=== PATIENT | male | born 1955 | race African-American/Black ===

== ENCOUNTER 2016-09-23 09:17 | Emergency (ER) | payer MEDICARE, MEDICAID ==
[~2016-09-23] VITALS: Ht 177.8 cm; Wt 55.0 kg
[~2016-09-23 09:17] MED LIST: 1-ME1LIQ PO; LIPI20TA PO; LISI-357 PO; LORTA5 PO; PROM25TA5 PO; SEVEL800 PO
[2016-09-23 09:19] VITALS: BP 112/79; PULSE 84; RESP 18; TEMP 97.5; O2SAT 99
--- NOTE | 2016-09-23 10:32 | PD ---
HPI Chief Complaint: Medication Refill Request Time Seen by Provider: 10:27 Travel History International Travel<30 days: No Contact w/Intl Traveler<30days: No Traveled to known affect area: No History of Present Illness HPI 60-year-old male presents to the emergency department requesting a new prescription for his Roxicodone. He has a prescription with him that the pharmacy will not fill it for him. He says he's been to every pharmacy and they tell him that they do not carry this medication. The patient is on dialysis and complains of chronic pain. His primary care gave him tramadol but that does not help with his pain. He has no emergent medical complaints at this time. He denies fever, chills, nausea, vomiting. Denies chest pain, shortness of breath, abdominal pain, change in urine or stool. Allergies to shellfish. No other modifying factors or associated signs and symptoms. History Past Medical Histgory Hx Cancer: No Hx Chemotherapy: No Hx Radiation Therapy: No Social History Alcohol Use: No Tobacco Use: No Allergies-Medications (Allergen,Severity, Reaction): Coded Allergies: Shellfish (Verified Allergy, Severe, 09/23/16) LIP SWELLING Reported Meds & Prescriptions Reported Meds & Active Scripts Active Phenergan 25 mg (Promethazine HCl) 25 Mg Tab 12.5 Mg PO Q6H PRN [place] 5-325 mg (Hydrocodone-Acetaminophen 5-325 mg) 1 Tab 1 Tab PO Q6H PRN Renvela (Sevelamer Carbonate) 800 Mg Tab 800 Mg PO TIDAC 30 Days Reported Lisinopril 5 mg (Lisinopril) 5 Mg Tab 1 Tab PO BID Lipitor 20 Mg Tab (Atorvastatin Calcium) 20 Mg Tab 20 Mg PO HS Amlodipine Besylate 10 mg (Amlodipine Besylate) 10 Mg Tab 1 Tab PO DAILY Review of Systems Except as stated in HPI: all other systems reviewed are Neg Physical Exam Narrative GENERAL: Well-nourished, well-developed male patient, in no acute distress SKIN: Warm and dry. HEAD: Atraumatic. Normocephalic. EYES: Pupils equal and round. No scleral icterus. No injection or drainage. ENT: Mucosa pink and moist. Airway patent. NECK: Trachea midline. CARDIOVASCULAR: Regular rate. RESPIRATORY: No accessory muscle use. GASTROINTESTINAL: Flat. MUSCULOSKELETAL: No obvious deformities. No clubbing. No cyanosis. No edema. NEUROLOGICAL: Awake and alert. Oriented 3. No obvious cranial nerve deficits. Motor grossly within normal limits. Normal speech. PSYCHIATRIC: Appropriate mood and affect; insight and judgment normal. Data Data Last Documented VS Vital Signs Date Time Temp Pulse Resp B/P Pulse Ox O2 Delivery O2 Flow Rate FiO2 09/23/16 09:19 97.5 84 18 112/79 99 Room Air MDM Medical Screen Exam Complete: Yes Emergency Medical Condition: No Differential Diagnosis Narcotic seeking, medication refill, medical clearance Narrative Course 60-year-old male requesting a new prescription for Roxicodone. He has a paper prescription for Roxicodone with him but apparently is not able to get them filled because he's been told by every pharmacy that he's been too that they do not carry the medication. He has a prescription bottle of tramadol with him that his primary care provider prescribed for him. He says the tramadol does not work for his pain and is requesting a prescription for pain medication. Vital signs are stable and the patient is stable for outpatient follow-up and treatment. The patient has no urgent or emergent medical complaints. There is no emergent or urgent medical need at this time. I instructed the patient to follow up with their primary care provider. A medical screening exam was performed: At the time of evaluation the presenting medical condition was determined not to be of an emergent nature. The patient was given the option of receiving additional care, but declined. Patient was given options for additional community resources from which to obtain care. The Patient Has Been advised to seek medical attention for their presenting complaint. The patient has been advised to return to the ER at any time if an emergent condition develops. Primary Impression: Encounter for medical screening examination Condition: Stable Amy Lino Sep 23, 2016 10:32
== END 2016-09-23 10:36 | disposition left against medical advice (07) ==
LOC: NEPB 09:17
DX: G89.29 Other chronic pain (principal); Z99.2 Dependence on renal dialysis
CPT/HCPCS: 99281

== ENCOUNTER 2017-07-15 04:03 | Emergency (ER) | payer MEDICARE, MEDICAID ==
[~2017-07-15] VITALS: Ht 177.8 cm; Wt 55.0 kg
[2017-07-15 04:06] VITALS: BP 167/96; PULSE 59; RESP 16; TEMP 97.7; O2SAT 99
[2017-07-15 04:20] VITALS: O2SAT 100
--- NOTE | 2017-07-15 04:24 | PD ---
HPI Chief Complaint: GI Complaint Time Seen by Provider: 04:19 Travel History International Travel<30 days: No Contact w/Intl Traveler<30days: No Traveled to known affect area: No History of Present Illness HPI The patient is a 61 year old male who presents to the [facility] emergency department with a history of abdominal cramping, nausea, nasal congestion, and shortness of breath that began Thursday night. He last moved his bowels on Thursday night. He reports that his stool has been harder than usual. The patient reports that he additionally noticed yesterday that he has 2 areas of swelling in the groin bilaterally. He reports that he just noticed this yesterday. He denies having any pain at those sites. He reports that the areas of swelling to figure when he stands up or bears down. He reports that they go away when he lies flat. The patient incidentally reports that he has had a 6-7 pound weight loss over the last month due to a loss of appetite. He denies ever having a colonoscopy. He reports that he is in the process of being scheduled for one. The patient is a hemodialysis patient. He received his last hemodialysis on Thursday. He is scheduled to have it again this morning. The patient denies having any chest pain or pressure. The patient denies having any cough or chest congestion. He denies having any rhinorrhea. On review of systems otherwise, the patient denies having any neck pain, abdominal pain, vomiting, diarrhea, or neurologic symptoms. [facility] Past Medical History Narrative Medical The patient's past medical history is significant for chronic renal failure on hemodialysis, hypertension, history of hyperparathyroid disorder, history of left fifth finger pain. Hx Anticoagulant Therapy: No Anemia: Yes Asthma: No Blood Disorders: No Anxiety: Yes Depression: Yes Heart Rhythm Problems: No Cancer: No Cardiovascular Problems: No High Cholesterol: Yes Chemotherapy: No Chest Pain: No Congestive Heart Failure: No COPD: Yes Cerebrovascular Accident: No Diabetes: No Dialysis: Yes (M/W/F) Diminished Hearing: No Endocrine: No Gastrointestinal Disorders: No Genitourinary: Yes (ESRD, DIALYSIS ././THU) Hypertension: Yes Immune Disorder: No Implanted Vascular Access Dvce: Yes (RIGHT Subclavian hemodialysis cath) Kidney Stones: No Musculoskeletal: No Neurologic: No Psychiatric: Yes Reproductive: No Respiratory: No Immunizations Current: Yes Radiation Therapy: No Renal Failure: Yes Sleep Apnea: No Thyroid Disease: No Past Surgical History Narrative Surgical The patient's past surgical history is significant for a left AV fistula. 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, AV SHUNT PLACED LEFT ARM) Social History Alcohol Use: No Tobacco Use: No Substance Use: No Allergies-Medications (Allergen,Severity, Reaction): Coded Allergies: shellfish derived (Unverified Allergy, Severe, 07/15/17) LIP SWELLING Reported Meds & Prescriptions Reported Meds & Active Scripts Active Colace (Docusate Sodium) 100 Mg Capsule 2 Cap PO QHS PRN Phenergan 25 mg (Promethazine HCl) 25 Mg Tab 12.5 Mg PO Q6H PRN [place] 5-325 mg (Hydrocodone-Acetaminophen 5-325 mg) 1 Tab 1 Tab PO Q6H PRN Renvela (Sevelamer Carbonate) 800 Mg Tab 800 Mg PO TIDAC 30 Days Reported Lisinopril 5 mg (Lisinopril) 5 Mg Tab 1 Tab PO BID Lipitor 20 Mg Tab (Atorvastatin Calcium) 20 Mg Tab 20 Mg PO HS 1-Methyl 2-Pyrrolidinone (1-Methyl 2-Pyrrolidone (Bulk)) 10 Mg Tab 1 Tab PO DAILY Review of Systems Except as stated in HPI: all other systems reviewed are Neg General / Constitutional: No: Fever Eyes: No: Visual changes HENT: Positive: Congestion (nasal), No: Headaches Cardiovascular: No: Chest Pain or Discomfort Respiratory: Positive: Shortness of Breath, No: Cough Gastrointestinal: Positive: Nausea, Abdominal Pain, Constipation, Changes in Bowel Habits, Loss of Appetite, No: Vomiting, Diarrhea, Hematochezia, Indigestion Genitourinary: No: Dysuria Musculoskeletal: No: Pain Skin: No Rash Neurologic: No: Weakness Psychiatric: No: Depression Endocrine: No: Polydipsia Hematologic/Lymphatic: No: Easy Bruising Physical Exam Narrative General: The patient is a well-developed thin appearing male in no acute distress. Head and Neck exam: Head is normocephalic atraumatic. Eyes: EOMI, pupils are equal round and reactive to light. Nose: Midline septum with pink mucous membranes clear nasal discharge. Mouth: Dentition unremarkable. Moist mucus membranes. Posterior oropharynx is not erythematous. No tonsillar hypertrophy. Uvula midline. Airway patent. Neck: No palpable lymphadenopathy. No nuchal rigidity. No thyromegaly. Cardiovascular: Regular rate and rhythm without murmurs, gallops, or rubs. Lungs: Clear to auscultation bilaterally. No wheezes, rhonchi, or rales. Abdomen: Soft, without tenderness to palpation in all 4 quadrants of the abdomen. No guarding, rebound, or rigidity. Normal bowel sounds are audible. No tenderness on palpation of McBurney's point. Negative Chinchilla's sign. The patient is noted to have bilateral inguinal hernias on palpation that are easily reducible. Extremities: No clubbing, cyanosis, or edema. 2+ pulses in all 4 extremities. No calf tenderness on palpation. Back: No spinous process tenderness to palpation. No costovertebral angle tenderness to palpation. Neurologic Exam: Grossly nonfocal. Skin Exam: No rash noted. Intact skin that is warm and dry. Data Data Last Documented VS Vital Signs Date Time Temp Pulse Resp B/P (MAP) Pulse Ox O2 Delivery O2 Flow Rate FiO2 07/15/17 04:21 16 07/15/17 04:06 97.7 59 167/96 (119) 99 Orders Orders Electrocardiogram (07/15/17 04:31) Complete Blood Count With Diff (07/15/17 04:31) Comprehensive Metabolic Panel (07/15/17 04:31) Troponin I (07/15/17 04:31) B-Type Natriuretic Peptide (07/15/17 04:31) Lipase (07/15/17 04:31) Chest, Single Ap (07/15/17 04:31) Iv Access Insert/Monitor (07/15/17 04:31) Ecg Monitoring (07/15/17 04:31) Oximetry (07/15/17 04:31) Ct Abd/Pel W/O Iv Contrast (07/15/17 04:42) Acetaminophen (Tylenol) (07/15/17 06:00) Ed Discharge Order (07/15/17 06:14) Labs Laboratory Tests Test 07/15/17 04:55 White Blood Count 3.1 TH/MM3 Red Blood Count 3.66 MIL/MM3 Hemoglobin 11.4 GM/DL Hematocrit 34.8 % Mean Corpuscular Volume 95.1 FL Mean Corpuscular Hemoglobin 31.0 PG Mean Corpuscular Hemoglobin Concent 32.6 % Red Cell Distribution Width 14.7 % Platelet Count 90 TH/MM3 Mean Platelet Volume 8.6 FL Neutrophils (%) (Auto) 44.2 % Lymphocytes (%) (Auto) 36.1 % Monocytes (%) (Auto) 12.4 % Eosinophils (%) (Auto) 6.4 % Basophils (%) (Auto) 0.9 % Neutrophils # (Auto) 1.3 TH/MM3 Lymphocytes # (Auto) 1.1 TH/MM3 Monocytes # (Auto) 0.4 TH/MM3 Eosinophils # (Auto) 0.2 TH/MM3 Basophils # (Auto) 0.0 TH/MM3 CBC Comment AUTO DIFF Differential Total Cells Counted N Differential Comment AUTO DIFF CONFIRMED Platelet Estimate LOW Platelet Morphology Comment NORMAL Ovalocytes 1+ Acanthocytes OCC Blood Urea Nitrogen 35 MG/DL Creatinine 3.77 MG/DL Random Glucose 82 MG/DL Total Protein 6.7 GM/DL Albumin 3.1 GM/DL Calcium Level 8.3 MG/DL Alkaline Phosphatase 119 U/L Aspartate Amino Transf (AST/SGOT) 29 U/L Alanine Aminotransferase (ALT/SGPT) 33 U/L Total Bilirubin 0.4 MG/DL Sodium Level 140 MEQ/L Potassium Level 4.5 MEQ/L Chloride Level 108 MEQ/L Carbon Dioxide Level 23.2 MEQ/L Anion Gap 9 MEQ/L Estimat Glomerular Filtration Rate 20 ML/MIN Troponin I 0.02 NG/ML B-Type Natriuretic Peptide 269 PG/ML Lipase 148 U/L MDM Medical Decision Making Medical Screen Exam Complete: Yes Emergency Medical Condition: Yes Medical Record Reviewed: Yes Interpretation(s) Last Impressions Abdomen/Pelvis CT 07/15/17441 Signed Impressions: Service Date/Time: Saturday, July 15, 2017 04:57 - CONCLUSION: Limited exam without IV contrast. Nonspecific bowel gas pattern with numerous air- filled loops of small and large bowel without any dilatation or obvious wall thickening. Question for early small inguinal hernias bilaterally containing loops of bowel. Tortuous aorta without aneurysm Otoniel Perez MD Chest X-Ray 07/15/17430 Signed Impressions: Service Date/Time: Saturday, July 15, 2017 04:38 - CONCLUSION: Normal examination. Otoniel Perez MD Differential Diagnosis Occult cancer, versus bowel obstruction, versus pulmonary edema, versus acute coronary syndrome, versus electrolyte derangement such as hyperkalemia Narrative Course During the course of the patients emergency department visit, the patients history, examination, and differential diagnosis were reviewed with the patient. The patient was placed on a vehicle monitor technician with oximetry and frequent blood pressure monitoring. The patient had IV access obtained and blood work sent for analysis. The patient had an ECG done on arrival. The patient's ECG reveals a sinus rhythm heart rate of 61, QRS duration 81 ms, QTC [address] segment elevation is noted. T waves are inverted in aVL, V1. The patient was initially provided Tylenol for pain. The patients laboratory studies were reviewed and remarkable for a white count of 3.1, hemoglobin 11.4, platelets 90 with 12.4 monocytes, CMP shows a chloride of 108, BUN 35, creatinine 3.77, calcium 8.3, alkaline phosphatase 119, troponin I 0.02, BNP 269, lipase 148 Radiology studies were reviewed and remarkable for a chest x-ray that shows no acute abnormality. CT scan of the abdomen and pelvis that shows a limited exam without IV contrast, nonspecific bowel gas pattern with numerous air filled loops of small and large bowel without any dilatation or obvious wall thickening. Question for early small inguinal hernias bilaterally containing loops of bowel. Tortuous aorta without aneurysm. The patient on examination is noted to have inguinal hernias bilaterally that are easily reducible. The patient was instructed regarding warning signs to come back for immediately if he develops any pain in those sites or they appear to be swollen and stuck out. The patient will be given the name of the general surgeon for follow-up to discuss this further. The patient is resting comfortably and feels better, is alert and in no distress. The patients results and examination findings were discussed with the patient. The repeat examination is unremarkable and benign. The history, exam, diagnostic testing, and current condition do not suggest any significant pathology to warrant further testing, continued ED treatment, admission, or surgical evaluation at this point. The vital signs have been stable. The patient does not have uncontrollable pain, intractable vomiting, or other significant symptoms. The patient's condition is stable and appropriate for discharge. The patient will pursue further outpatient evaluation with a primary care physician or other designated or consulting physician as indicated in the discharge instructions. The patient expressed understanding and was agreeable with this plan. Diagnosis Primary Impression: Nasal congestion Additional Impressions: Abdominal cramping Constipation Qualified Codes: K59.00 - Constipation, unspecified Bilateral inguinal hernia Qualified Codes: K40.20 - Bilateral inguinal hernia, without obstruction or gangrene, not specified as recurrent Referrals: Jim Aragon MD 1 week Primary Care Physician 1 day Patient Instructions: Constipation (ED), General Instructions, Inguinal Hernia (ED) Additional Instructions: The patient is instructed to follow-up for dialysis today. The patient is instructed to follow-up with the general surgeon to discuss his inguinal hernias. Med/Other Pt SpecificInfo: Prescription(s) given Scripts Docusate Sodium (Colace) 100 Mg Capsule 2 CAP PO qhs Y for CONSTIPATION, #10 Prov: Trina Hoffman MD 07/15/17 Disposition: 01 DISCHARGE HOME Condition: Stable Trina Hoffman MD Jul 15, 2017 04:24
[2017-07-15 05:15] LABS: AUTOMATED NEUTROPHIL # 1.3 TH/MM3 (1.8-7.7); BASOPHIL % 0.9 % (0.0-2.0); EOSINOPHIL # 0.2 TH/MM3 (0-0.4); EOSINOPHIL % 6.4 % (0.0-4.0); HEMATOCRIT 34.8 % (39.0-51.0); LYMPH % 36.1 % (9.0-44.0); LYMPHOCYTE # 1.1 TH/MM3 (1.0-4.8); MEAN CELL VOLUME 95.1 FL (80.0-100.0); MEAN CORPUSCULAR HGB CONC 32.6 % (32.0-36.0); MONO % 12.4 % (0.0-8.0); NEUT % 44.2 % (16.0-70.0); PLATELET COUNT 90 TH/MM3 (150-450); RED BLOOD COUNT 3.66 MIL/MM3 (4.50-5.90); RED CELL DISTRIBUTION WIDTH 14.7 % (11.6-17.2); WHITE BLOOD COUNT 3.1 TH/MM3 (4.0-11.0)
[2017-07-15 05:20] LABS: HEMO FLAGS AUTO DIFF
--- NOTE | 2017-07-15 05:21 | RADRPT ---
EXAM DATE/TIME: 07/15/2017 04:57 [facility] COMPARISON: No previous studies available for comparison. INDICATIONS : Diffuse abdominal pain and swelling with nausea. ORAL CONTRAST: No oral contrast ingested. RADIATION DOSE: 6.64 CTDIvol (mGy) MEDICAL HISTORY : Hypertension. Emphysema. Renal failure. COPD. Dialysis. SURGICAL HISTORY : AV Shunt. ENCOUNTER: Initial ACUITY: 2 days PAIN SCALE: 2/10 LOCATION: medial Abdomen. TECHNIQUE: Volumetric scanning of the abdomen and pelvis was performed. Using automated exposure control and ad justment of the mA and/or kV according to patient size, radiation dose was kept as low as reasonably achievable to obtain optimal diagnostic quality images. DICOM format image data is available electro nically for review and comparison. FINDINGS: LOWER LUNGS: The visualized lower lungs are clear other than minimal bibasilar atelectasis and a few small blebs l eft lung base. LIVER: Homogeneous density without lesion. There is no dilation of the biliary tree. No calcified gallston es. SPLEEN: Normal size without lesion. PANCREAS: Within normal limits. KIDNEYS: Mildly atrophic in appearance. There is no mass, stone, or hydronephrosis. ADRENAL GLANDS: Within normal limits. VASCULAR: There is no aortic aneurysm. Tortuous atherosclerotic disease of aorta BOWEL/MESENTERY: The stomach, small bowel, and colon demonstrate no acute abnormality. There is no free intraperitone al air or fluid. ABDOMINAL WALL: Within normal limits. RETROPERITONEUM: There is no lymphadenopathy. BLADDER: No wall thickening or mass. REPRODUCTIVE: Within normal limits. INGUINAL: There some areas of bowel in both regions of the inguinal canals can be small bilateral hernias. MUSCULOSKELETAL: Within normal limits for patient age. L5 pars defect CONCLUSION: Limited exam without IV contrast. Nonspecific bowel gas pattern with numerous air-filled loops of sma ll and large bowel without any dilatation or obvious wall thickening. Question for early small inguin al hernias bilaterally containing loops of bowel. Tortuous aorta without aneurysm Otoniel Perez MD on July 15, 2017 at 5:17 Board Certified Radiologist. This report was verified electronically.
[2017-07-15 05:27] LABS: ALT (GPT) 33 U/L (12-78); ANION GAP 9 MEQ/L (5-15); AST (GOT) 29 U/L (15-37); BICARBONATE 23.2 MEQ/L (21.0-32.0); BLOOD UREA NITROGEN 35 MG/DL (7-18); CHLORIDE 108 MEQ/L (98-107); GLOMERULAR FILTRATION RATE 20 ML/MIN (>89); POTASSIUM 4.5 MEQ/L (3.5-5.1); SODIUM (NA) 140 MEQ/L (136-145)
[2017-07-15 05:31] LABS: ALKALINE PHOSPHATASE 119 U/L (45-117); TOTAL BILIRUBIN ADULT 0.4 MG/DL (0.2-1.0)
--- NOTE | 2017-07-15 05:39 | RADRPT ---
EXAM DATE/TIME: 07/15/2017 04:38 [facility] COMPARISON: CHEST SINGLE AP, May 15, 2016, 11:31. INDICATIONS : Shortness of breath. MEDICAL HISTORY : Hypertension. Hypercholesterolemia. Chronic obstructive pulmonary disease. Anemia. Dialysis. Tammy l failure. SURGICAL HISTORY : None. ENCOUNTER: Initial ACUITY: 1 day PAIN SCORE: 0/10 LOCATION: Bilateral chest FINDINGS: A single view of the chest demonstrates the lungs to be symmetrically aerated without evidence of mas s, infiltrate or effusion. The cardiomediastinal contours are unremarkable. Osseous structures are intact. CONCLUSION: Normal examination. Otoniel Perez MD on July 15, 2017 at 5:38 Board Certified Radiologist. This report was verified electronically.
[2017-07-15] MEDS ORDERED: COLA100C5 PO (05:50)
[2017-07-15] MEDS ORDERED: ACETAMINOPHEN 325 MG TAB PO ONE (06:00)
[2017-07-15 06:06] LABS: PLATELET ESTIMATE SMEAR LOW (NORMAL); SCAN/DIFF AUTO DIFF CONFIRMED; WBC DIFF SAMPLE N
[2017-07-15 06:07] LABS: ACANTHOCYTES OCC (NORMAL); OVALOCYTES 1+ (NORMAL); PLATELET MORPHOLOGY NORMAL (NORMAL)
[2017-07-15 06:46] VITALS: BP 160/98; PULSE 62; RESP 16; O2SAT 100
--- NOTE | 2017-07-15 18:28 | EKG ---
Date Performed: 07/15/2017 Time Performed: 04:51:38 PTAGE: 61 years EKG: Sinus rhythm WITH FIRST DEGREE AV BLOCK ANTEROSEPTAL MYOCARDIAL INFARCTION ABNORMAL ECG PREVIOUS TRACING : 05/15/2016 23.52 Compared to prior tracing no significant change DOCTOR: Sanket Jenkins Interpretating Date/Time 07/15/2017 18:27:00
== END 2017-07-15 07:21 | disposition home or self-care (01) ==
LOC: NEPE 04:03
DX: K40.20 Bilateral inguinal hernia, without obstruction or gangrene, not specified as recurrent (principal); K59.00 Constipation, unspecified; R09.81 Nasal congestion; I12.0 Hypertensive chronic kidney disease with stage 5 chronic kidney disease or end stage renal disease; N18.6 End stage renal disease; Z99.2 Dependence on renal dialysis; D64.9 Anemia, unspecified; F41.9 Anxiety disorder, unspecified; E78.00 Pure hypercholesterolemia, unspecified
CPT/HCPCS: 71010; 74176; 80053; 83690; 83880; 84484; 85025; 93005; 99285

== ENCOUNTER 2018-02-09 04:28 | Observation (INO) | payer MEDICARE, MEDICAID ==
[~2018-02-09] VITALS: Ht 177.8 cm; Wt 55.0 kg
[~2018-02-09 04:28] MED LIST changes: +COLA100C5 PO
[2018-02-09 04:30] VITALS: BP 184/99; PULSE 63; RESP 18; TEMP 97.3; O2SAT 98
[2018-02-09] MEDS ORDERED: LIDOCAINE VISCOUS 2% SOLN 15 ML UDC PO ONE (05:15)
[2018-02-09] MEDS ORDERED: ALUMINUM/MAGNESIUM/SIMETH 30 ML CUP PO ONE (05:15)
[2018-02-09] MEDS ORDERED: SODIUM CHLORIDE 0.9% FLUSH 10 ML FLUSH IV FLUSH PRN ×2 (05:15→06:30)
--- NOTE | 2018-02-09 05:26 | PD ---
HPI Chief Complaint: Abdominal Pain Time Seen by Provider: 04:55 Travel History International Travel<30 days: No Contact w/Intl Traveler<30days: No Traveled to known affect area: No History of Present Illness HPI Patient is a 62-year-old male with history of hypertension, hyperlipidemia, end- stage renal disease on hemodialysis every Mondays, Wednesdays and Fridays who presents to the emergency room for evaluation of abdominal pain and chest pain. Patient reports that for the past 2 days, he has been having abdominal pain. Reports that pain is located to his upper abdomen and has been persistent since yesterday. Reports that nothing makes his symptoms better or worse. Reports that pain came on "out of no where." Reports no nausea or vomiting, denies constipation/diarrhea. Reports that he is also having chest pain. Chest pain has been intermittent and is located to his left upper chest. Reports chest pain as sharp and stabbing, it comes on at rest and is there for 10 minutes and then resolves on it's own. Reports that he did feel nauseous with his chest pain. Reports no chest pain at this time. PFSH Past Medical History Hx Anticoagulant Therapy: No Anemia: Yes Asthma: No Blood Disorders: No Anxiety: Yes Depression: Yes Heart Rhythm Problems: No Cancer: No Cardiovascular Problems: No High Cholesterol: Yes Chemotherapy: No Chest Pain: No Congestive Heart Failure: No COPD: Yes Cerebrovascular Accident: No Diabetes: No Dialysis: Yes (M/W/F) Diminished Hearing: No Endocrine: No Gastrointestinal Disorders: No Genitourinary: Yes (ESRD) Hypertension: Yes Immune Disorder: No Implanted Vascular Access Dvce: Yes (RIGHT Subclavian hemodialysis cath) Kidney Stones: No Musculoskeletal: No Neurologic: No Psychiatric: Yes Reproductive: No Respiratory: No Immunizations Current: Yes Radiation Therapy: No Renal Failure: Yes Sleep Apnea: No Thyroid Disease: No Tetanus Vaccination: Unknown Influenza Vaccination: Yes Past Surgical History 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, AV SHUNT PLACED LEFT ARM) Social History Alcohol Use: No Tobacco Use: No Substance Use: No Allergies-Medications (Allergen,Severity, Reaction): Coded Allergies: shellfish derived (Unverified Allergy, Severe, 02/09/18) LIP SWELLING Reported Meds & Prescriptions Reported Meds & Active Scripts Active Colace (Docusate Sodium) 100 Mg Capsule 2 Cap PO QHS PRN Phenergan 25 mg (Promethazine HCl) 25 Mg Tab 12.5 Mg PO Q6H PRN [place] 5-325 mg (Hydrocodone-Acetaminophen 5-325 mg) 1 Tab 1 Tab PO Q6H PRN Renvela (Sevelamer Carbonate) 800 Mg Tab 800 Mg PO TIDAC 30 Days Reported Lisinopril 5 mg (Lisinopril) 5 Mg Tab 1 Tab PO BID Lipitor 20 Mg Tab (Atorvastatin Calcium) 20 Mg Tab 20 Mg PO HS 1-Methyl 2-Pyrrolidinone (1-Methyl 2-Pyrrolidone (Bulk)) 10 Mg Tab 1 Tab PO DAILY Review of Systems General / Constitutional: No: Fever Eyes: No: Visual changes HENT: No: Headaches Cardiovascular: Positive: Chest Pain or Discomfort Respiratory: Positive: Shortness of Breath Gastrointestinal: Positive: Nausea, Abdominal Pain, No: Vomiting Genitourinary: No: Dysuria Musculoskeletal: No: Pain Skin: No Rash Neurologic: No: Weakness Psychiatric: No: Depression Endocrine: No: Polydipsia Hematologic/Lymphatic: No: Easy Bruising Physical Exam Narrative GENERAL: NAD SKIN: Focused skin assessment warm/dry. HEAD: Atraumatic. Normocephalic. EYES: Pupils equal and round. No scleral icterus. No injection or drainage. ENT: No nasal bleeding or discharge. Mucous membranes pink and moist. NECK: Trachea midline. No JVD. CARDIOVASCULAR: Regular rate and rhythm. No murmur appreciated. RESPIRATORY: No accessory muscle use. Clear to auscultation. Breath sounds equal bilaterally. GASTROINTESTINAL: Abdomen soft, diffusely tender with guarding on exam, nondistended. Hepatic and splenic margins not palpable. MUSCULOSKELETAL: No obvious deformities. No clubbing. No cyanosis. No edema. NEUROLOGICAL: Awake and alert. No obvious cranial nerve deficits. Motor grossly within normal limits. Normal speech. PSYCHIATRIC: Appropriate mood and affect; insight and judgment normal. Data Data Last Documented VS Vital Signs Date Time Temp Pulse Resp B/P (MAP) Pulse Ox O2 Delivery O2 Flow Rate FiO2 02/09/18 04:30 97.3 63 18 184/99 (127) 98 Orders Orders Complete Blood Count With Diff (02/09/18 05:08) Comprehensive Metabolic Panel (02/09/18 05:08) Lipase (02/09/18 05:08) Prothrombin Time / Inr (Pt) (02/09/18 05:08) Act Partial Throm Time (Ptt) (02/09/18 05:08) Ct Abd/Pel W/O Iv Contrast (02/09/18 05:08) Iv Access Insert/Monitor (02/09/18 05:08) Ecg Monitoring (02/09/18 05:08) Oximetry (02/09/18 05:08) NPO (02/09/18 05:08) Sodium Chloride 0.9% Flush (Ns Flush) (02/09/18 05:15) Electrocardiogram (02/09/18 05:08) Chest, Single Ap (02/09/18 05:08) Ckmb (Isoenzyme) Profile (02/09/18 05:08) Troponin I (02/09/18 05:08) Al-Mag Hy-Si 40-40-4 Mg/Ml Liq (Mag-Al P (02/09/18 05:15) Lidocaine 2% Viscous (Xylocaine 2% Visco (02/09/18 05:15) Admit Order (Ed Use Only) (02/09/18 06:29) Activity Bed Rest With Brp (02/09/18 06:29) Vital Signs (Adult) Q4H (02/09/18 06:29) Cardiac Rhythm .As Directed (02/09/18 06:29) Notify Dr: Other .PRN (02/09/18 06:29) Notify Dr. Parameters (02/09/18 06:29) Resp Oxygen Nasal Cannula (02/09/18 ) Ckmb (Isoenzyme) Profile (02/09/18 08:20) Ckmb (Isoenzyme) Profile (02/09/18 11:20) Troponin I (02/09/18 08:20) Troponin I (02/09/18 11:20) Electrocardiogram (02/09/18 06:29) Electrocardiogram (02/09/18 09:29) ^ Obtain (02/09/18 06:29) Sodium Chloride 0.9% Flush (Ns Flush) (02/09/18 06:30) Sodium Chloride 0.9% Flush (Ns Flush) (02/09/18 09:00) Care Nurse Rn / Telemetry [email or web address] (02/09/18 06:29) Labs Laboratory Tests Test 02/09/18 05:20 White Blood Count 3.9 TH/MM3 Red Blood Count 4.46 MIL/MM3 Hemoglobin 13.6 GM/DL Hematocrit 41.2 % Mean Corpuscular Volume 92.4 FL Mean Corpuscular Hemoglobin 30.5 PG Mean Corpuscular Hemoglobin Concent 33.0 % Red Cell Distribution Width 15.6 % Platelet Count 89 TH/MM3 Mean Platelet Volume 8.1 FL Neutrophils (%) (Auto) 56.0 % Lymphocytes (%) (Auto) 27.1 % Monocytes (%) (Auto) 11.3 % Eosinophils (%) (Auto) 4.8 % Basophils (%) (Auto) 0.8 % Neutrophils # (Auto) 2.2 TH/MM3 Lymphocytes # (Auto) 1.0 TH/MM3 Monocytes # (Auto) 0.4 TH/MM3 Eosinophils # (Auto) 0.2 TH/MM3 Basophils # (Auto) 0.0 TH/MM3 CBC Comment AUTO DIFF Prothrombin Time 10.5 SEC Prothromb Time International Ratio 1.0 RATIO Activated Partial Thromboplast Time 24.7 SEC Blood Urea Nitrogen 23 MG/DL Creatinine 2.98 MG/DL Random Glucose 67 MG/DL Total Protein 8.1 GM/DL Albumin 3.5 GM/DL Calcium Level 8.7 MG/DL Alkaline Phosphatase 144 U/L Aspartate Amino Transf (AST/SGOT) 33 U/L Alanine Aminotransferase (ALT/SGPT) 36 U/L Total Bilirubin 0.6 MG/DL Sodium Level 140 MEQ/L Potassium Level 5.0 MEQ/L Chloride Level 108 MEQ/L Carbon Dioxide Level 22.4 MEQ/L Anion Gap 10 MEQ/L Estimat Glomerular Filtration Rate 26 ML/MIN Total Creatine Kinase 92 U/L Troponin I LESS THAN 0.02 NG/ML Lipase 266 U/L [facility] Medical Decision Making Medical Screen Exam Complete: Yes Emergency Medical Condition: Yes Medical Record Reviewed: Yes Interpretation(s) EKG at 0513: NSR at 60bpm, qt/qtc: 427/428, 1st degree av block Vital Signs Date Time Temp Pulse Resp B/P (MAP) Pulse Ox O2 Delivery O2 Flow Rate FiO2 02/09/18 04:30 97.3 63 18 184/99 (891) 98 Differential Diagnosis acs, arrhythmia, gerd, gastric ulcer, cholecystitis, gastris Narrative Course During the course of the patients emergency department visit, the patients history, examination, and differential diagnosis were reviewed with the patient. The patient was placed on a bill collector with oximetry and frequent blood pressure monitoring. The patient had an IV access obtained and blood work sent for analysis. The patients laboratory studies were reviewed and remarkable for Laboratory Tests Test 02/09/18 05:20 White Blood Count 3.9 TH/MM3 (4.0-11.0) Red Blood Count 4.46 MIL/MM3 (4.50-5.90) Hemoglobin 13.6 GM/DL (13.0-17.0) Hematocrit 41.2 % (39.0-51.0) Mean Corpuscular Volume 92.4 FL (80.0-100.0) Mean Corpuscular Hemoglobin 30.5 PG (27.0-34.0) Mean Corpuscular Hemoglobin Concent 33.0 % (32.0-36.0) Red Cell Distribution Width 15.6 % (11.6-17.2) Platelet Count 89 TH/MM3 (150-450) Mean Platelet Volume 8.1 FL (7.0-11.0) Neutrophils (%) (Auto) 56.0 % (16.0-70.0) Lymphocytes (%) (Auto) 27.1 % (9.0-44.0) Monocytes (%) (Auto) 11.3 % (0.0-8.0) Eosinophils (%) (Auto) 4.8 % (0.0-4.0) Basophils (%) (Auto) 0.8 % (0.0-2.0) Neutrophils # (Auto) 2.2 TH/MM3 (1.8-7.7) Lymphocytes # (Auto) 1.0 TH/MM3 (1.0-4.8) Monocytes # (Auto) 0.4 TH/MM3 (0-0.9) Eosinophils # (Auto) 0.2 TH/MM3 (0-0.4) Basophils # (Auto) 0.0 TH/MM3 (0-0.2) CBC Comment AUTO DIFF Prothrombin Time 10.5 SEC (9.8-11.6) Prothromb Time International Ratio 1.0 RATIO Activated Partial Thromboplast Time 24.7 SEC (24.3-30.1) Blood Urea Nitrogen 23 MG/DL (7-18) Creatinine 2.98 MG/DL (0.60-1.30) Random Glucose 67 MG/DL (74-106) Total Protein 8.1 GM/DL (6.4-8.2) Albumin 3.5 GM/DL (3.4-5.0) Calcium Level 8.7 MG/DL (8.5-10.1) Alkaline Phosphatase 144 U/L (45-117) Aspartate Amino Transf (AST/SGOT) 33 U/L (15-37) Alanine Aminotransferase (ALT/SGPT) 36 U/L (12-78) Total Bilirubin 0.6 MG/DL (0.2-1.0) Sodium Level 140 MEQ/L (136-145) Potassium Level 5.0 MEQ/L (3.5-5.1) Chloride Level 108 MEQ/L (98-107) Carbon Dioxide Level 22.4 MEQ/L (21.0-32.0) Anion Gap 10 MEQ/L (5-15) Estimat Glomerular Filtration Rate 26 ML/MIN (>89) Total Creatine Kinase 92 U/L (39-308) Troponin I LESS THAN 0.02 NG/ML Lipase 266 U/L (73-393) Radiology studies were reviewed and remarkable for Last Impressions Chest X-Ray 02/09/18 0508 Signed Impressions: CONCLUSION: No acute cardiopulmonary disease identified. Abdomen/Pelvis CT 02/09/18 050 Signed Impressions: CONCLUSION: 1. Diffuse urinary bladder wall thickening. 2. Small left nonobstructing renal calculus again seen. 3. Small bilateral inguinal hernias again seen. 4. Diffuse atherosclerotic disease. 5. Bilateral pars interarticularis defects at L5. Ct of abdomen and pelvis with no acute process to cause abdominal pain. Plan to obs for chest pain in chest pain unit Diagnosis Primary Impression: Chest pain Qualified Codes: R07.9 - Chest pain, unspecified Additional Impression: Abdominal pain Mouna Paredes DO Feb 09, 2018 05:25
[2018-02-09 05:42] LABS: AUTOMATED NEUTROPHIL # 2.2 TH/MM3 (1.8-7.7); BASOPHIL % 0.8 % (0.0-2.0); EOSINOPHIL # 0.2 TH/MM3 (0-0.4); EOSINOPHIL % 4.8 % (0.0-4.0); HEMATOCRIT 41.2 % (39.0-51.0); HEMOGLOBIN 13.6 GM/DL (13.0-17.0); LYMPH % 27.1 % (9.0-44.0); MEAN CELL VOLUME 92.4 FL (80.0-100.0); MEAN CORPUSCULAR HEMOGLOBIN 30.5 PG (27.0-34.0); MEAN PLATELET VOLUME 8.1 FL (7.0-11.0); MONO % 11.3 % (0.0-8.0); MONOCYTE # 0.4 TH/MM3 (0-0.9); PLATELET COUNT 89 TH/MM3 (150-450); RED BLOOD COUNT 4.46 MIL/MM3 (4.50-5.90); RED CELL DISTRIBUTION WIDTH 15.6 % (11.6-17.2); WHITE BLOOD COUNT 3.9 TH/MM3 (4.0-11.0)
[2018-02-09 05:50] LABS: PROTHROMBIN TIME - PATIENT 10.5 SEC (9.8-11.6)
[2018-02-09 05:55] LABS: ALBUMIN 3.5 GM/DL (3.4-5.0); ALT (GPT) 36 U/L (12-78); AST (GOT) 33 U/L (15-37); BICARBONATE 22.4 MEQ/L (21.0-32.0); BLOOD UREA NITROGEN 23 MG/DL (7-18); CALCIUM 8.7 MG/DL (8.5-10.1); CHLORIDE 108 MEQ/L (98-107); CREATININE 2.98 MG/DL (0.60-1.30); GLOMERULAR FILTRATION RATE 26 ML/MIN (>89); GLUCOSE,RANDOM 67 MG/DL (74-106); SODIUM (NA) 140 MEQ/L (136-145)
[2018-02-09 05:57] LABS: ALKALINE PHOSPHATASE 144 U/L (45-117); TOTAL BILIRUBIN ADULT 0.6 MG/DL (0.2-1.0); TOTAL PROTEIN 8.1 GM/DL (6.4-8.2); TROPONIN I LESS THAN 0.02 NG/ML (0.02-0.05)
--- NOTE | 2018-02-09 06:00 | RADRPT ---
EXAM DATE: 02/09/2018 5:56 AM EDT AGE/SEX: 62 years / Male INDICATIONS: Short of breath. CLINICAL DATA: This is the patient's initial encounter. Patient reports that signs and symptoms have been present for 1 day and indicates a pain score of 0/10. MEDICAL/SURGICAL HISTORY: None. None. [place] [facility] [place]. . FINDINGS: Single AP view of the chest. The lungs are clear. Cardiomediastinal silhouette within norm al limits. No evidence of pleural effusion or pneumothorax. CONCLUSION: No acute cardiopulmonary disease identified. Electronically signed by: Cuba Otero MD 02/09/2018 5:58 AM EDT
--- NOTE | 2018-02-09 06:28 | RADRPT ---
EXAM DATE: 02/09/2018 6:19 AM EDT AGE/SEX: 62 years / Male INDICATIONS: Abdomen pain. CLINICAL DATA: This is the patient's initial encounter. Patient reports that signs and symptoms have been present for 1 day and indicates a pain score of 5/10. MEDICAL/SURGICAL HISTORY: Chronic obstructive pulmonary disease. Hypertension. Renal failure, chronic. None. RADIATION DOSE: 6.64 CTDI (mGy) COMPARISON: [facility], CT ABDOMEN & PELVIS W/O CONTRAST, 07/15/2017. . TECHNIQUE: Multiple contiguous axial images were obtained through the abdomen. Images were obtained using multiple row detector helical technique. Using dose reduction techniques, radiation dose was ke pt as low as reasonably achievable to obtain optimal diagnostic quality images. FINDINGS: Lower Lungs: Mild bilateral lower lobe atelectasis. Liver: The liver has a homogeneous density without space-occupying lesion. There is no dilation of th e biliary tree. Spleen: Homogeneous density without enlargement. Pancreas: Unremarkable without mass or calcification. Kidneys: 1.5 cm round hypodensity in the midpole of the right kidney likely representing a cyst. 2 m m calculus in the lower pole of the left kidney unchanged. No evidence for hydronephrosis. Adrenal Glands: Unremarkable. Aorta: Tortuous aorta and diffuse aortoiliac calcification. Aortic diameter within normal limits. Bowel/Mesentery: No evidence of bowel dilatation. No free air or free fluid. Appendix not identified . Abdominal Wall: Intact. Retroperitoneum: No evidence of adenopathy in the retrocrural, para-aortic, or deep pelvic regions. Bladder: Diffuse urinary bladder wall thickening. Reproductive Organs: No abnormal masses or calcifications seen. Inguinal: Small bilateral inguinal hernias containing loops of small bowel. Bony Structures: Bilateral pars interarticularis defects at L5. CONCLUSION: 1. Diffuse urinary bladder wall thickening. 2. Small left nonobstructing renal calculus again seen. 3. Small bilateral inguinal hernias again seen. 4. Diffuse atherosclerotic disease. 5. Bilateral pars interarticularis defects at L5. Electronically signed by: Cuba Otero MD 02/09/2018 6:26 AM EDT
[2018-02-09 06:37] LABS: OVALOCYTES 1+ (NORMAL)
[2018-02-09] MEDS ORDERED: ASPIRIN 81 MG CHEW TAB CHEW ONE (06:45)
[2018-02-09 07:10] VITALS: BP 182/105; PULSE 73; RESP 17; O2SAT 100
[2018-02-09] MEDS ORDERED: AMLO10TA2 PO (07:10)
[2018-02-09] MEDS ORDERED: LISI10TA3 PO (07:10)
--- NOTE | 2018-02-09 08:02 | HHI.HP ---
[facility] Primary Care Physician Dr. Dino Gustafson Chief Complaint Abdominal pain History of Present Illness 62-year-old male with history of end-stage renal disease and hypertension presents emergency room for further evaluation of abdominal pain. Onset 4 days ago. Location epigastric and "under my ribs cage." Characterized as aching, "like a toothache." No radiation of pain. Duration constant. No associated symptoms of nausea, vomiting, or diaphoresis. Mild shortness of breath stating breathing makes the discomfort worse. No particular movement or position makes pain better or worse. Precipitating factors pushing on area. Relieving factors eating. No recent illness, fever, or chills. Denies similar pain in the past. Reports recent stress testing performed at [facility]. Review of Systems General: No fatigue, weakness, fever, chills, recent illness, or change in appetite. Has been in his general state of health. End-stage renal disease, dialysis Thursday, Thursday, and Fridays. Poor historian. HEENT: No ANAYA, no vision changes, no nasal congestion or drainage, no dysphasia CV: As stated above, denies any chest pain or pressure, pointing to epigastric and bilateral lower rib cage. RESP: Shallow breathing due to discomfort, no SOB, No cough, or hemoptysis. History of COPD, no inhalers. Wheezing x2 nights ago, since resolved. GI: No nausea, vomiting, bowel changes, diarrhea, constipation, distention, melena, or blood in the stool. No change in appetite. No history of acid reflux. : No dysuria, urgency, or frequency EXT: No lower leg edema, no paraesthesias MS: No discomfort, injury, trauma, or change in ROM NEURO: No change in memory, dizziness, difficulty with balance, LOC, or motor/ sensory deficits PSYCH: No anxiety, depression, or suicidal ideation SKIN: No rashes, no concerning lesions Past Family Social History Allergies: Coded Allergies: shellfish derived (Unverified Allergy, Severe, 02/09/18) LIP SWELLING Past Medical History Hypertension, hyperlipidemia, end-stage renal disease, COPD Past Surgical History Left upper arm fistula Reported Medications Reported Meds & Active Scripts Active Renvela (Sevelamer Carbonate) 800 Mg Tab 800 Mg PO TIDAC 30 Day Amlodipine (Amlodipine Besylate) 10 Mg Tab 10 Mg PO DAILY Lisinopril 10 Mg Tab 10 Mg PO DAILY Active Ordered Medications Current Medications Medications (Trade) Dose Ordered Sig/Christiano Route Start Time Stop Time Status Last Admin (NS Flush) 2 ml UNSCH PRN IV FLUSH 02/09/18 05:15 (NS Flush) 2 ml UNSCH PRN IV FLUSH 02/09/18 06:30 (NS Flush) 2 ml BID IV FLUSH 02/09/18 09:00 Social History Known hypertension. Endorses hyperlipidemia, currently not on medication. No known diabetes or coronary artery disease. Former smoker, quitting many years ago. Denies any alcohol or illegal drug use. Single. Disabled. 16-year-old daughter resides with him. Endorses a sedentary lifestyle. Past cardiac testing 01/19/18 Lexiscan-no perfusion deficits. EF decreased, follow up with an Echocardiogram which found normal ejection fraction. 08/19/11 Cardiac catheterization-20% lesion circumflex, 20-30% RCA otherwise normal coronary arteries. Testing completed at [facility] for clearance for possible renal transplant. Physical Exam Vital Signs Vital Signs Date Time Temp Pulse Resp B/P (MAP) Pulse Ox O2 Delivery O2 Flow Rate FiO2 02/09/18 07:10 73 17 182/105 (130) 100 Room Air 02/09/18 04:30 97.3 63 18 184/99 (127) 98 Physical Exam GENERAL: Alert WN, WD, NAD, pleasant, thin, -[place] male who appears older than stated age HEAD: NC, AT EYES: Sclera clear, conjunctiva without injection, pupils equal and round ENT: Mucous membranes pink and moist CV: RRR, without murmur, rub, gallop, no JVD, S1-S2 no S3-S4. Chest wall nontender with palpation. Left upper arm AV fistula positive bruit/trill RESP: Clear lungs throughout bilateral, no crackles, wheeze, rhonchi, symmetrical chest rise, nonlabored, able to speak in full sentences ABD: Epigastric and bilateral upper quads posterior ribs tender with palpation. Soft, ND, no masses, positive bowel tones. EXT: Pulses +2x4, no dependent edema MS: Normal tone x4 extremities, no obvious deformities, full range of motion, left third digit partial amputated NEURO: CN II through CN XII grossly intact, motor strength 5/5, gait WNL PSYCH: A+O x3, pleasant affect, appropriate speech, mood, insight and judgment SKIN: Normal turgor, normal texture, no lesions, no rashes, brisk cap refill, bilateral lower extremities discolored Laboratory Laboratory Tests Test 02/09/18 05:20 White Blood Count 3.9 Red Blood Count 4.46 Hemoglobin 13.6 Hematocrit 41.2 Mean Corpuscular Volume 92.4 Mean Corpuscular Hemoglobin 30.5 Mean Corpuscular Hemoglobin Concent 33.0 Red Cell Distribution Width 15.6 Platelet Count 89 Mean Platelet Volume 8.1 Neutrophils (%) (Auto) 56.0 Lymphocytes (%) (Auto) 27.1 Monocytes (%) (Auto) 11.3 Eosinophils (%) (Auto) 4.8 Basophils (%) (Auto) 0.8 Neutrophils # (Auto) 2.2 Lymphocytes # (Auto) 1.0 Monocytes # (Auto) 0.4 Eosinophils # (Auto) 0.2 Basophils # (Auto) 0.0 CBC Comment AUTO DIFF Differential Comment AUTO DIFF CONFIRMED Platelet Estimate LOW Platelet Morphology Comment NORMAL Ovalocytes 1+ Prothrombin Time 10.5 Prothromb Time International Ratio 1.0 Activated Partial Thromboplast Time 24.7 Blood Urea Nitrogen 23 Creatinine 2.98 Random Glucose 67 Total Protein 8.1 Albumin 3.5 Calcium Level 8.7 Alkaline Phosphatase 144 Aspartate Amino Transf (AST/SGOT) 33 Alanine Aminotransferase (ALT/SGPT) 36 Total Bilirubin 0.6 Sodium Level 140 Potassium Level 5.0 Chloride Level 108 Carbon Dioxide Level 22.4 Anion Gap 10 Estimat Glomerular Filtration Rate 26 Total Creatine Kinase 92 Troponin I LESS THAN 0.02 Lipase 266 Result Diagram: 02/09/1851902/09/1820 Imaging Last 48 hours Impressions Chest X-Ray 02/09/188 Signed Impressions: CONCLUSION: No acute cardiopulmonary disease identified. Abdomen/Pelvis CT 02/09/188 Signed Impressions: CONCLUSION: 1. Diffuse urinary bladder wall thickening. 2. Small left nonobstructing renal calculus again seen. 3. Small bilateral inguinal hernias again seen. 4. Diffuse atherosclerotic disease. 5. Bilateral pars interarticularis defects at L5. Course EKG First-degree AV block, normal axis, no ST-T segment changes Caprini VTE Risk Assessment Caprini VTE Risk Assessment: Mod/High Risk (score >= 2) Caprini Risk Assessment Model Point Value = 1 Point Value = 2 Point Value = 3 Point Value = 5 Age 41-60 Minor surgery BMI > 25 kg/m2 Swollen legs Varicose veins or History of unexplained or recurrent spontaneous Oral contraceptives or hormone replacement Sepsis (< 1 month) Serious lung disease, including pneumonia (< 1 month) Abnormal pulmonary function Acute myocardial infarction Congestive heart failure (< 1 month) History of inflammatory bowel disease Medical patient at bed rest Age 61-74 Arthroscopic surgery Major open surgery (> 45 min) Laparoscopic surgery (> 45 min) Malignancy Confined to bed (> 72 hours) Immobilizing plaster cast Central venous access Age >= 75 History of VTE Family history of VTE Factor V Leiden Prothrombin [id number] Lupus anticoagulant Anticardiolipin antibodies Elevated serum homocysteine Heparin-induced thrombocytopenia Other congenital or acquired thrombophilia Stroke (< 1 month) Elective arthroplasty Hip, pelvis, or leg fracture Acute spinal cord injury (< 1 month) Prophylaxis Regimen Total Risk Factor Score Risk Level Prophylaxis Regimen 0-1 Low Early ambulation 2 Moderate Order ONE of the following: *Sequential Compression Device (SCD) *Heparin 5000 units SQ BID 3-4 Higher Order ONE of the following medications: *Heparin 5000 units SQ TID *Enoxaparin/Lovenox 40 mg SQ daily (WT < 150 kg, CrCl > 30 mL/min) *Enoxaparin/Lovenox 30 mg SQ daily (WT < 150 kg, CrCl > 10-29 mL/min) *Enoxaparin/Lovenox 30 mg SQ BID (WT < 150 kg, CrCl > 30 mL/min) AND/OR *Sequential Compression Device (SCD) 5 or more Highest Order ONE of the following medications: *Heparin 5000 units SQ TID (Preferred with Epidurals) *Enoxaparin/Lovenox 40 mg SQ daily (WT < 150 kg, CrCl > 30 mL/min) *Enoxaparin/Lovenox 30 mg SQ daily (WT < 150 kg, CrCl > 10-29 mL/min) *Enoxaparin/Lovenox 30 mg SQ BID (WT < 150 kg, CrCl > 30 mL/min) AND *Sequential Compression Device (SCD) Assessment and Plan Assessment and Plan Admitted chest pain center. ACS protocol initiated in ER. Seen and evaluated by Dr. Jody Maier. Epigastric discomfort suggest GI component. Abdomen pelvis CT scan no acute findings. Contacted [facility] heart [facility], recent cardiac testing confirmed and cardiac catheterization completed in 2011 reviewed. Hypertensive upon admission, continue home medications, add metoprolol 25mg po daily. Will call patient's PCP to update ER events and plan of care as patient is a poor historian. No further cardiac testing recommended at this time. Follow-up with PCP. Begin omeprazole 20 mg p.o. daily. Plan for discharge later this morning, keep dialysis appointment scheduled Thursday. Discussed plan of care with patient in length. Verbalizes understanding and agreeable to plan of care. 0915-Spoke with Dr. Gustafson's office. Patient is not an active patient with Dr. Gustafson's office. Upon further discussion with patient, states he was living in [place], [place] for awhile and seen last by a PCP in [facility]. Tells me he can easily call Dr. Gustafson's office to reestablish as a patient, as he just hadn't got around to calling office. Copies of abdomen/pelvis Ct, chest xray, and operatory studies will be provided upon discharge. Instructed to follow-up with PCP within 1-2 weeks. Jennifer Stack Feb 09, 2018 08:02
[2018-02-09] MEDS ORDERED: NITROGLYCERIN 0.4 MG SL 25 TABS/BTL SL PRN (08:15)
[2018-02-09] MEDS ORDERED: ACETAMINOPHEN 500 MG CPLT PO PRN (08:15)
[2018-02-09] MEDS ORDERED: METOPROLOL TARTRATE 25 MG TAB PO ONE (08:30)
[2018-02-09] MEDS ORDERED: LISINOPRIL 10 MG TAB PO SCH (09:00)
[2018-02-09] MEDS ORDERED: SODIUM CHLORIDE 0.9% FLUSH 10 ML FLUSH IV FLUSH SCH (09:00)
[2018-02-09 09:05] VITALS: BP 155/94; PULSE 66; RESP 20; TEMP 98; O2SAT 97
[2018-02-09] MEDS ORDERED: PANTOPRAZOLE SOD 40 MG DELAYED RELEASE TAB PO ONE (09:30)
[2018-02-09 11:03] LABS: TROPONIN I LESS THAN 0.02 NG/ML (0.02-0.05)
[2018-02-09] MEDS ORDERED: METO25TA3 PO (11:05)
[2018-02-09] MEDS ORDERED: PROT40TA PO (11:05)
[2018-02-09 12:00] VITALS: BP 151/94; PULSE 63; RESP 18; TEMP 98.5; O2SAT 97
[2018-02-09 13:33] LABS: TROPONIN I LESS THAN 0.02 NG/ML (0.02-0.05)
--- NOTE | 2018-02-09 13:39 | HHI.DCPOC ---
Discharge Care Plan Diagnosis: (1) Atypical chest pain (2) Hypertension (3) History of end stage renal disease (4) GERD (gastroesophageal reflux disease) Goals to Promote Your Health * To prevent worsening of your condition and complications * To maintain your health at the optimal level Directions to Meet Your Goals Take your medications as prescribed Follow your dietary instruction Follow activity as directed Keep your appointments as scheduled Take your immunizations and boosters as scheduled If your symptoms worsen call your PCP, if no PCP go to Urgent Care Center or Emergency Room Smoking is Dangerous to Your Health. Avoid second hand smoke Call the 24-hour hour crisis hotline for domestic abuse at Jennifer Stack Feb 09, 2018 13:39
--- NOTE | 2018-02-09 14:04 | EKG ---
Date Performed: 02/09/2018 Time Performed: 08:27:12 PTAGE: 62 years EKG: Sinus rhythm WITH FIRST DEGREE AV BLOCK MARKED LEFT AXIS DEVIATION SEPTAL MYOCARDIAL INFARCTION ABNORMAL ECG No s ignificant change from prior electrocardiogram. PREVIOUS TRACING : 02/09/2018 05.13 DOCTOR: Nestor La Interpretating Date/Time 02/09/2018 14:03:49
--- NOTE | 2018-02-09 14:13 | EKG ---
Date Performed: 02/09/2018 Time Performed: 05:13:58 PTAGE: 62 years EKG: Sinus rhythm WITH FIRST DEGREE AV BLOCK MARKED LEFT AXIS DEVIATION SEPTAL MYOCARDIAL INFARCTION ABNORMAL ECG No s ignificant change from prior electrocardiogram. PREVIOUS TRACING : 07/15/2017 04.51 DOCTOR: Nestor La Interpretating Date/Time 02/09/2018 14:13:01
[2018-02-09] MEDS ORDERED: SEVELAMER CARBONATE 800 MG TAB PO SCH (17:00)
[2018-02-10] MEDS ORDERED: ASPIRIN 325 MG TAB PO SCH (09:00)
--- NOTE | 2018-02-10 09:36 | EKG ---
Date Performed: 02/09/2018 Time Performed: 12:31:56 PTAGE: 62 years EKG: SINUS BRADYCARDIA WITH FIRST DEGREE AV BLOCK MARKED LEFT AXIS DEVIATION SEPTAL MYOCARDIAL I NFARCTION ABNORMAL ECG NO PREVIOUS TRACING DOCTOR: Otoniel Potts Interpretating Date/Time 02/10/2018 09:34:52
== END 2018-02-09 15:41 | disposition home or self-care (01) ==
LOC: NEPC 04:28 → NEDA 06:31 → NEPHCDU 08:27
PROVIDERS: ADMIT Internal Medicine Cardiovascular Disease; ATTEND Internal Medicine Cardiovascular Disease
DX: R07.89 Other chest pain (principal); R06.02 Shortness of breath; I12.0 Hypertensive chronic kidney disease with stage 5 chronic kidney disease or end stage renal disease; N18.6 End stage renal disease; K40.20 Bilateral inguinal hernia, without obstruction or gangrene, not specified as recurrent; N20.0 Calculus of kidney; I44.0 Atrioventricular block, first degree; R00.1 Bradycardia, unspecified; J44.9 Chronic obstructive pulmonary disease, unspecified; E78.5 Hyperlipidemia, unspecified; K21.9 Gastro-esophageal reflux disease without esophagitis; Z79.899 Other long term (current) drug therapy; Z87.891 Personal history of nicotine dependence; Z99.2 Dependence on renal dialysis
CPT/HCPCS: 71045; 74176; 80053; 82550; 83690; 84484; 85025; 85610; 85730; 93005; 99285; G0378

== ENCOUNTER 2018-02-14 20:49 | Emergency (ER) | payer MEDICARE, MEDICAID ==
[~2018-02-14 20:49] MED LIST changes: -1-ME1LIQ PO; +AMLO10TA2 PO; -COLA100C5 PO; -LIPI20TA PO; -LISI-357 PO; +LISI10TA3 PO; -LORTA5 PO; +METO25TA3 PO; -PROM25TA5 PO; +PROT40TA PO
[2018-02-14 21:10] VITALS: BP 198/112; PULSE 83; RESP 16; TEMP 98.5; O2SAT 99
[2018-02-14] MEDS ORDERED: SODIUM CHLORIDE 0.9% FLUSH 10 ML FLUSH IV FLUSH PRN (21:45)
[2018-02-14] MEDS ORDERED: ALUMINUM/MAGNESIUM/SIMETH 30 ML CUP PO ONE (21:45)
[2018-02-14] MEDS ORDERED: FAMOTIDINE 20 MG/2 ML VIAL IV PUSH ONE (21:45)
[2018-02-14] MEDS ORDERED: ONDANSETRON ODT 4 MG TAB PO ONE (21:45)
[2018-02-14] MEDS ORDERED: LIDOCAINE VISCOUS 2% SOLN 15 ML UDC PO ONE (21:45)
[2018-02-14 22:16] LABS: AUTOMATED NEUTROPHIL # 2.3 TH/MM3 (1.8-7.7); BASOPHIL % 0.8 % (0.0-2.0); EOSINOPHIL # 0.2 TH/MM3 (0-0.4); EOSINOPHIL % 4.7 % (0.0-4.0); HEMATOCRIT 39.4 % (39.0-51.0); LYMPH % 29.1 % (9.0-44.0); LYMPHOCYTE # 1.2 TH/MM3 (1.0-4.8); MEAN CELL VOLUME 93.1 FL (80.0-100.0); MEAN CORPUSCULAR HEMOGLOBIN 30.7 PG (27.0-34.0); MONOCYTE # 0.4 TH/MM3 (0-0.9); NEUT % 55.4 % (16.0-70.0); PLATELET COUNT 95 TH/MM3 (150-450); RED BLOOD COUNT 4.24 MIL/MM3 (4.50-5.90); RED CELL DISTRIBUTION WIDTH 15.5 % (11.6-17.2); WHITE BLOOD COUNT 4.2 TH/MM3 (4.0-11.0)
[2018-02-14 22:25] LABS: INTERNATIONAL NORMALIZED RATIO 1.1 RATIO
[2018-02-14 22:33] LABS: ALBUMIN 3.7 GM/DL (3.4-5.0); AST (GOT) 32 U/L (15-37); BICARBONATE 20.9 MEQ/L (21.0-32.0); BLOOD UREA NITROGEN 39 MG/DL (7-18); CALCIUM 9.1 MG/DL (8.5-10.1); CHLORIDE 110 MEQ/L (98-107); CREATININE 4.37 MG/DL (0.60-1.30); GLOMERULAR FILTRATION RATE 17 ML/MIN (>89); GLUCOSE,RANDOM 83 MG/DL (74-106); SODIUM (NA) 139 MEQ/L (136-145)
[2018-02-14 22:34] LABS: ALT (GPT) 41 U/L (12-78)
[2018-02-14 22:36] LABS: ALKALINE PHOSPHATASE 160 U/L (45-117); TOTAL BILIRUBIN ADULT 0.4 MG/DL (0.2-1.0)
[2018-02-14 23:02] LABS: OVALOCYTES 1+ (NORMAL)
--- NOTE | 2018-02-14 23:33 | PD ---
HPI Chief Complaint: Abdominal Pain Time Seen by Provider: 21:31 Travel History International Travel<30 days: No Contact w/Intl Traveler<30days: No Traveled to known affect area: No History of Present Illness HPI Patient is a 62-year-old male who comes in complaining of abdominal pain. He says it has been bothering him all day. He localizes it to the middle of his abdomen. He has been here in the past for this, without a source for the pain found. He is on dialysis, was last dialyzed on Thursday. He denies chest pain or shortness of breath. Denies fever chills. He denies nausea or vomiting. He was here 5 days ago and was observed for chest pain. He also had a CAT scan done that showed no acute abnormalities. Severity is mild. PFSH Past Medical History Hx Anticoagulant Therapy: No Anemia: Yes Asthma: No Blood Disorders: No Anxiety: Yes Depression: Yes Heart Rhythm Problems: No Cancer: No Cardiac Catheterization: Yes Cardiovascular Problems: No High Cholesterol: Yes Chemotherapy: No Chest Pain: No Congestive Heart Failure: No COPD: Yes Cerebrovascular Accident: No Diabetes: No Dialysis: Yes (M/W/F) Diminished Hearing: No Endocrine: No Gastrointestinal Disorders: No Genitourinary: Yes (ESRD) Hypertension: Yes Immune Disorder: No Implanted Vascular Access Dvce: Yes (RIGHT Subclavian hemodialysis cath) Kidney Stones: No Musculoskeletal: No Neurologic: No Psychiatric: Yes Reproductive: No Respiratory: No Immunizations Current: Yes Radiation Therapy: No Renal Failure: Yes Sleep Apnea: No Thyroid Disease: No Past Surgical History AICD: No Arteriovenous Shunt: Yes (LEFT ) Coronary Artery Bypass Graft: No Insulin Pump: No Joint Replacement: No Pacemaker: No Other Surgery: Yes (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, AV SHUNT PLACED LEFT ARM) Social History Alcohol Use: No Tobacco Use: No Substance Use: No Allergies-Medications (Allergen,Severity, Reaction): Coded Allergies: shellfish derived (Unverified Allergy, Severe, 02/09/18) LIP SWELLING Reported Meds & Prescriptions Reported Meds & Active Scripts Active Protonix (Pantoprazole Sodium) 40 Mg Tab 40 Mg PO DAILY Metoprolol Tartrate 25 Mg Tab 25 Mg PO DAILY Renvela (Sevelamer Carbonate) 800 Mg Tab 800 Mg PO TIDAC 30 Days Reported Amlodipine (Amlodipine Besylate) 10 Mg Tab 10 Mg PO DAILY Lisinopril 10 Mg Tab 10 Mg PO DAILY Review of Systems Except as stated in HPI: all other systems reviewed are Neg General / Constitutional: No: Fever, Chills HENT: No: Headaches, Lightheadedness Cardiovascular: No: Chest Pain or Discomfort Respiratory: No: Shortness of Breath Gastrointestinal: Positive: Abdominal Pain, No: Nausea, Vomiting Musculoskeletal: No: Myalgias, Edema Skin: No Rash, No Change in Pigmentation Neurologic: No: Weakness, Dizziness Physical Exam Narrative GENERAL: Awake and alert, no acute distress. SKIN: Focused skin assessment warm/dry. HEAD: Atraumatic. Normocephalic. EYES: Pupils equal and round. No scleral icterus. ENT: Mucous membranes pink and moist. NECK: Trachea midline. No JVD. CARDIOVASCULAR: Regular rate and rhythm. No murmur appreciated. RESPIRATORY: No accessory muscle use. Clear to auscultation. Breath sounds equal bilaterally. GASTROINTESTINAL: Abdomen soft, nondistended. Mild tenderness to palpation across the upper abdomen. No rebound or guarding. MUSCULOSKELETAL: No obvious deformities. No clubbing. No cyanosis. No edema. NEUROLOGICAL: Awake and alert. No obvious cranial nerve deficits. Motor grossly within normal limits. Normal speech. PSYCHIATRIC: Appropriate mood and affect; insight and judgment normal. Data Data Last Documented VS Vital Signs Date Time Temp Pulse Resp B/P (MAP) Pulse Ox O2 Delivery O2 Flow Rate FiO2 02/14/18 21:10 98.5 83 16 198/112 (140) 99 Orders Orders Complete Blood Count With Diff (02/14/18 21:43) Comprehensive Metabolic Panel (02/14/18 21:43) Lipase (02/14/18 21:43) Prothrombin Time / Inr (Pt) (02/14/18 21:43) Act Partial Throm Time (Ptt) (02/14/18 21:43) Iv Access Insert/Monitor (02/14/18 21:43) Ecg Monitoring (02/14/18 21:43) Oximetry (02/14/18 21:43) Sodium Chloride 0.9% Flush (Ns Flush) (02/14/18 21:45) Famotidine Inj (Pepcid Inj) (02/14/18 21:45) Al-Mag Hy-Si 40-40-4 Mg/Ml Liq (Mag-Al P (02/14/18 21:45) Lidocaine 2% Viscous (Xylocaine 2% Visco (02/14/18 21:45) Ondansetron Odt (Zofran Odt) (02/14/18 21:45) Labs Laboratory Tests Test 02/14/18 22:05 White Blood Count 4.2 TH/MM3 Red Blood Count 4.24 MIL/MM3 Hemoglobin 13.0 GM/DL Hematocrit 39.4 % Mean Corpuscular Volume 93.1 FL Mean Corpuscular Hemoglobin 30.7 PG Mean Corpuscular Hemoglobin Concent 33.0 % Red Cell Distribution Width 15.5 % Platelet Count 95 TH/MM3 Mean Platelet Volume 8.0 FL Neutrophils (%) (Auto) 55.4 % Lymphocytes (%) (Auto) 29.1 % Monocytes (%) (Auto) 10.0 % Eosinophils (%) (Auto) 4.7 % Basophils (%) (Auto) 0.8 % Neutrophils # (Auto) 2.3 TH/MM3 Lymphocytes # (Auto) 1.2 TH/MM3 Monocytes # (Auto) 0.4 TH/MM3 Eosinophils # (Auto) 0.2 TH/MM3 Basophils # (Auto) 0.0 TH/MM3 CBC Comment AUTO DIFF Differential Comment AUTO DIFF CONFIRMED Platelet Estimate LOW Platelet Morphology Comment NORMAL Ovalocytes 1+ Prothrombin Time 11.0 SEC Prothromb Time International Ratio 1.1 RATIO Activated Partial Thromboplast Time 29.6 SEC Blood Urea Nitrogen 39 MG/DL Creatinine 4.37 MG/DL Random Glucose 83 MG/DL Total Protein 8.0 GM/DL Albumin 3.7 GM/DL Calcium Level 9.1 MG/DL Alkaline Phosphatase 160 U/L Aspartate Amino Transf (AST/SGOT) 32 U/L Alanine Aminotransferase (ALT/SGPT) 41 U/L Total Bilirubin 0.4 MG/DL Sodium Level 139 MEQ/L Potassium Level 4.5 MEQ/L Chloride Level 110 MEQ/L Carbon Dioxide Level 20.9 MEQ/L Anion Gap 8 MEQ/L Estimat Glomerular Filtration Rate 17 ML/MIN Lipase 244 U/L [facility] Medical Decision Making Medical Screen Exam Complete: Yes Emergency Medical Condition: Yes Medical Record Reviewed: Yes Differential Diagnosis Gastritis versus GERD versus cholelithiasis versus cholecystitis Narrative Course Patient is a 62-year-old male comes in complaining of abdominal pain. Exam shows mild tenderness across the upper abdomen. IV established, labs sent. Labs show no acute abnormalities. Patient given GI cocktail. Patient had a CAT scan done 5 days ago that shows no acute abnormalities. I do not feel at this time he warrants another CAT scan. He is advised follow-up with gastroenterology. Advised return anytime for any worsening symptoms. Diagnosis Primary Impression: GERD (gastroesophageal reflux disease) Qualified Codes: K21.9 - Gastro-esophageal reflux disease without esophagitis Additional Impression: Abdominal pain Qualified Codes: R10.10 - Upper abdominal pain, unspecified Referrals: Estella Cortez MD call for appointment Patient Instructions: Abdominal Pain (ED), Gastroesophageal Reflux Disease (ED) , General Instructions Additional Instructions: Follow-up with gastroenterology. Take antacids as needed. Return to the ED as needed for any worsening symptoms. Disposition: 01 DISCHARGE HOME Condition: Stable Henrietta Braxton MD Feb 14, 2018 23:33
== END 2018-02-15 00:44 | disposition home or self-care (01) ==
LOC: NEPE 20:49
DX: K21.9 Gastro-esophageal reflux disease without esophagitis (principal); F41.9 Anxiety disorder, unspecified; F32.9 Major depressive disorder, single episode, unspecified; E78.00 Pure hypercholesterolemia, unspecified; J44.9 Chronic obstructive pulmonary disease, unspecified; I12.0 Hypertensive chronic kidney disease with stage 5 chronic kidney disease or end stage renal disease; N18.6 End stage renal disease; Z99.2 Dependence on renal dialysis; Z79.899 Other long term (current) drug therapy
CPT/HCPCS: 80053; 83690; 85025; 85610; 85730; 96374